=== PATIENT | male | born 1975 | race African-American/Black ===

== ENCOUNTER 2019-06-20 19:37 | Emergency (ER) | payer OTHER ==
[~2019-06-20] VITALS: Ht 180.3 cm; Wt 84.0 kg
[2019-06-20] MEDS ORDERED: SODIUM CHLORIDE 0.9% 1,000 ML IV ONE (20:20)
[2019-06-20] MEDS ORDERED: ONDANSETRON HCL 4MG/2ML INJ IV ONE (20:30)
[2019-06-20] MEDS ORDERED: BACITRACIN ZINC OINT UDPKT TOP ONE (20:30)
[2019-06-20] MEDS ORDERED: TETANUS, DIPHTHERIA, PERTUSSIS VAC/PF 0.5ML (>7YR OLD) IM ONE (20:30)
[2019-06-21] MEDS ORDERED: IBUPROFEN 600MG TABLET PO ONE (05:30)
[2019-06-21] MEDS ORDERED: TETANUS, DIPHTHERIA, PERTUSSIS VAC/PF 0.5ML (>7YR OLD) IM ONE (06:00)
[2019-06-21 06:35] VITALS: BP 163/92
== END 2019-06-21 06:40 | disposition home or self-care (01) ==
LOC: ER 19:55
DX: S01.511A Laceration without foreign body of lip, initial encounter (principal); T51.91XA Toxic effect of unspecified alcohol, accidental (unintentional), initial encounter; F17.210 Nicotine dependence, cigarettes, uncomplicated; F12.10 Cannabis abuse, uncomplicated; Z59.0 Homelessness; W01.0XXA Fall on same level from slipping, tripping and stumbling without subsequent striking against object, initial encounter; Y93.89 Activity, other specified; Y92.89 Other specified places as the place of occurrence of the external cause; Y99.8 Other external cause status
CPT/HCPCS: 12011; 36415; 70450; 70486; 80320; 90471; 90715; 96374; 99283; 99406; J2405; J7030; J7040; Z7610; G0480